=== PATIENT | female | born 2000 | race Two or more races ===

== ENCOUNTER 2021-02-24 | Outpatient (CLI) | payer OTHER | END 2021-02-24 09:14 | disposition home or self-care (01) | LOC: PPH VACUNA | DX: Z23 Encounter for immunization (principal) ==

== ENCOUNTER 2021-03-17 08:10 | Outpatient (CLI) | payer OTHER | END 2021-03-17 08:15 | disposition home or self-care (01) | LOC: PPH VACUNA 08:10 | DX: Z23 Encounter for immunization (principal) ==

== ENCOUNTER → 2021-03-17 14:20 | Outpatient (CLI) | payer OTHER | END | disposition home or self-care (01) | LOC: PPH VACUNA 14:20 | DX: Z23 Encounter for immunization (principal) ==

== ENCOUNTER 2021-11-17 08:00 | Outpatient (CLI) | payer OTHER | END 2021-11-17 08:30 | disposition home or self-care (01) | LOC: PPH VACUNA 08:00 | PROVIDERS: ATTEND Emergency Medicine Pediatric Emergency Medicine | DX: Z23 Encounter for immunization (principal) ==